=== PATIENT | female | born 2000 | race Caucasian/White ===

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

== ENCOUNTER 2020-11-23 16:41 | Emergency (ER) | payer MEDICAID ==
[~2020-11-23] VITALS: Ht 162.6 cm; Wt 73.7 kg
[~2020-11-23 16:41] MED LIST: DICY20TA29 PO
[2020-11-23] MEDS ORDERED: ONDANSETRON 2MG/ML, 2ML ONE (17:47)
[2020-11-23] MEDS ORDERED: MAALOX/HYOSCYAMINE/LIDOCAINE 45 ML BTL ONE (17:48)
--- NOTE | 2020-11-23 17:50 | NUR ---
PT RESTING ON GURNEY AT THIS TIME, PT TO BP, CONT PULSE OX. PT STATES SHE IS UNABLE TO PROVIDE URINE SAMPLE AT THIS TIME, REQUESTS TO BE GIVEN FLUIDS FIRST. PIV INITIATED PT MEDICATED PER OCT.
[2020-11-23] MEDS ORDERED: SODIUM CHLORIDE 0.9% 1,000ML IVBOLUS ONE ×2 (18:00→20:00)
[2020-11-23] MEDS ORDERED: MAALOX/HYOSCYAMINE/LIDOCAINE 45 ML BTL PO ONE (18:00)
[2020-11-23] MEDS ORDERED: ONDANSETRON 2MG/ML, 2ML IVPush ONE (18:00)
[2020-11-23] MEDS ORDERED: SODIUM CHLORIDE FLUSH 10ML SYR IVF ONE (18:00)
--- NOTE | 2020-11-23 18:12 | NUR ---
report received from oneida prather.
[2020-11-23 18:14] LABS: BASOPHILS % (AUTO) 0 % (0-1); EOSINOPHILS % (AUTO) 0 % (1-7); LYMPHOCYTES % (AUTO) 15 % (22-44); MEAN CORPUSCULAR HEMOGLOBIN 29.2 pg (27.0-34.8); MEAN CORPUSCULAR HGB CONC 34.9 g/dL (32.4-35.8); MEAN PLATELET VOLUME 6.6 fL (7.4-10.4); MONOCYTES % (AUTO) 6 % (2-9); NEUTROPHILS % (AUTO) 79 % (42-75); PLATELET COUNT 300 x10^3/uL (130-400); RED BLOOD COUNT 5.09 x10^6/uL (3.82-5.3); RED CELL DISTRIBUTION WIDTH 13.3 % (9.6-15.2)
[2020-11-23 18:15] LABS: MD NO
[2020-11-23 18:21] LABS: ALANINE AMINOTRANSFERASE 19 U/L (12-78); ALBUMIN 3.8 g/dL (3.4-5.0); ANION GAP 12 mmol/L (5-15); CALCIUM 9.8 mg/dL (8.5-10.1); CHLORIDE 103 mmol/L (98-107)
[2020-11-23 18:23] LABS: ALKALINE PHOSPHATASE 75 U/L (45-117); BILIRUBIN,TOTAL 0.7 mg/dL (0.2-1.0); TOTAL PROTEIN 7.8 g/dL (6.4-8.2)
--- NOTE | 2020-11-23 18:42 | NUR ---
report given to willie prather.
--- NOTE | 2020-11-23 18:50 | NUR ---
Report received from NELL Contreras. This RN to assume care.
[2020-11-23 19:24] VITALS: BP 99/71
--- NOTE | 2020-11-23 19:30 | NUR ---
Patient feeling "okay." Urine collected and sent to lab.
[2020-11-23 19:41] LABS: MICROSCOPIC INDICATED
--- NOTE | 2020-11-23 20:00 | NUR ---
Additional bolus initiated. Patient tolerating fluids well but states it mckenna. Apple juice provided.
--- NOTE | 2020-11-23 20:37 | NUR ---
Fluids still infusing. No complaints at this time.
--- NOTE | 2020-11-23 21:50 | NUR ---
Fluids completed. Discharge instructions given. All questions and concerns addressed. Patient ambulatory with a steady gait. Belongings with patient.
== END 2020-11-23 22:01 | disposition home or self-care (01) ==
LOC: ED 18:18
DX: O21.1 Hyperemesis gravidarum with metabolic disturbance (principal); O99.611 Diseases of the digestive system complicating pregnancy, first trimester; K21.9 Gastro-esophageal reflux disease without esophagitis; R00.0 Tachycardia, unspecified; Z3A.13 13 weeks gestation of pregnancy
CPT/HCPCS: 36415; 80053; 81001; 83690; 85025; 87086; 93005; 96361; 96374; 99284; J2405; J7030

== ENCOUNTER 2021-01-31 17:24 | Emergency (ER) | payer MEDICAID ==
[~2021-01-31] VITALS: Ht 162.6 cm; Wt 86.0 kg
[2021-01-31] MEDS ORDERED: MORPHINE SULFATE 4 MG/ML, 1ML IVPush PRN (18:00)
[2021-01-31] MEDS ORDERED: ONDANSETRON 2MG/ML, 2ML IVPush ONE (18:00)
[2021-01-31] MEDS ORDERED: SODIUM CHLORIDE FLUSH 10ML SYR IVF ONE (18:00)
[2021-01-31] MEDS ORDERED: MORPHINE SULFATE 4 MG/ML, 1ML ONE (18:03)
[2021-01-31] MEDS ORDERED: ONDANSETRON 2MG/ML, 2ML ONE (18:03)
--- NOTE | 2021-01-31 18:10 | NUR ---
ON ARRIVAL TO ROOM, PT AMBULATORY TO BR TO PROVIDE URINE SPECIMEN. PT UNABLE TO GO AT THAT TIME BUT AWARE OF NEED FOR UA. IV PLACED, LABS DRAWN WITH START. MEDS GIVEN PER ERP ORDER FOR 5/10 L FLANK PAIN. WARM BLANKET PROVIDED, PT TO US.
[2021-01-31 18:20] LABS: BASOPHILS % (AUTO) 0 % (0-1); EOSINOPHILS % (AUTO) 1 % (1-7); LYMPHOCYTES % (AUTO) 16 % (22-44); MEAN CORPUSCULAR HEMOGLOBIN 30.4 pg (27.0-34.8); MEAN CORPUSCULAR HGB CONC 34.4 g/dL (32.4-35.8); MEAN PLATELET VOLUME 6.4 fL (7.4-10.4); MONOCYTES % (AUTO) 7 % (2-9); NEUTROPHILS % (AUTO) 77 % (42-75); PLATELET COUNT 280 x10^3/uL (130-400); RED CELL DISTRIBUTION WIDTH 13.3 % (9.6-15.2)
[2021-01-31 18:30] LABS: ALANINE AMINOTRANSFERASE 18 U/L (12-78); ALBUMIN 2.9 g/dL (3.4-5.0); ANION GAP 10 mmol/L (5-15); CHLORIDE 106 mmol/L (98-107)
[2021-01-31 18:33] LABS: ALKALINE PHOSPHATASE 71 U/L (45-117); BILIRUBIN,TOTAL 0.3 mg/dL (0.2-1.0); TOTAL PROTEIN 6.9 g/dL (6.4-8.2)
[2021-01-31] MEDS ORDERED: PREN1TAB60 PO (18:59)
--- NOTE | 2021-01-31 18:59 | NUR ---
PT BACK FROM US. REPORT TO TARSHA CAMEJO, TRANSFER OF CARE AT THIS TIME.
[2021-01-31] MEDS ORDERED: SODIUM CHLORIDE 0.9%, 500ML IVBOLUS ONE (19:00)
--- NOTE | 2021-01-31 19:00 | NUR ---
PT AMBULATED WITH STEADY GAIT TO BATHROOM TO OBTAIN UA.
[2021-01-31 19:20] LABS: MICROSCOPIC AUTO
[2021-01-31] MEDS ORDERED: CEFTRIAXONE 1,000 MG in DEXTROSE 5% 50 ML IVPB ONE (19:30)
--- NOTE | 2021-01-31 19:38 | NUR ---
Patient is resting comfortably in bed. Bed in lowest, rails engaged, call light on lap. Vital Signs within normal limits. WCTM.
[2021-01-31 20:51] VITALS: BP 107/65
== END 2021-01-31 21:20 | disposition home or self-care (01) ==
LOC: ED 18:32
DX: O23.02 Infections of kidney in pregnancy, second trimester (principal); N10 Acute pyelonephritis; J45.909 Unspecified asthma, uncomplicated; K21.9 Gastro-esophageal reflux disease without esophagitis; Z90.49 Acquired absence of other specified parts of digestive tract; Z88.1 Allergy status to other antibiotic agents; Z3A.23 23 weeks gestation of pregnancy
CPT/HCPCS: 36415; 76770; 76815; 80053; 81001; 83690; 85025; 87086; 96361; 96365; 96375; 99285; J0696; J2270; J2405; J7040

== ENCOUNTER 2021-02-01 17:19 | Inpatient (IN) | payer MEDICAID ==
[~2021-02-01] VITALS: Ht 162.6 cm; Wt 90.1 kg
[~2021-02-01 17:19] MED LIST changes: +PREN1TAB60 PO
[2021-02-01] MEDS ORDERED: ONDANSETRON 2MG/ML, 2ML ONE (17:46)
[2021-02-01] MEDS ORDERED: MORPHINE SULFATE 4 MG/ML, 1ML ONE ×2 (17:46→18:36)
[2021-02-01] MEDS ORDERED: MORPHINE SULFATE 4 MG/ML, 1ML IVPush PRN (18:00)
[2021-02-01] MEDS ORDERED: ONDANSETRON 2MG/ML, 2ML IVPush ONE (18:00)
[2021-02-01] MEDS ORDERED: SODIUM CHLORIDE 0.9% 1,000ML IVBOLUS ONE ×2 (18:00→19:00)
[2021-02-01] MEDS ORDERED: SODIUM CHLORIDE FLUSH 10ML SYR IVF ONE ×2 (18:00→19:00)
--- NOTE | 2021-02-01 18:12 | NUR ---
pt states she just felt her baby kick. pt was concerned since she hadn't felt him all day.
[2021-02-01 18:28] LABS: BASOPHILS % (AUTO) 0 % (0-1); EOSINOPHILS % (AUTO) 0 % (1-7); LYMPHOCYTES % (AUTO) 10 % (22-44); MEAN CORPUSCULAR HGB CONC 33.7 g/dL (32.4-35.8); MEAN PLATELET VOLUME 6.6 fL (7.4-10.4); MONOCYTES % (AUTO) 5 % (2-9); NEUTROPHILS % (AUTO) 84 % (42-75); PLATELET COUNT 257 x10^3/uL (130-400); RED BLOOD COUNT 3.97 x10^6/uL (3.82-5.3); RED CELL DISTRIBUTION WIDTH 13.3 % (9.6-15.2)
[2021-02-01 18:30] LABS: ALANINE AMINOTRANSFERASE 15 U/L (12-78); ALBUMIN 2.9 g/dL (3.4-5.0); ANION GAP 10 mmol/L (5-15); CALCIUM 8.8 mg/dL (8.5-10.1); CHLORIDE 108 mmol/L (98-107); CREATININE 0.73 mg/dL (0.55-1.02)
[2021-02-01 18:32] LABS: ALKALINE PHOSPHATASE 73 U/L (45-117); BILIRUBIN,TOTAL 0.3 mg/dL (0.2-1.0); TOTAL PROTEIN 6.8 g/dL (6.4-8.2)
[2021-02-01 18:53] LABS: MICROSCOPIC AUTO
[2021-02-01] MEDS ORDERED: CEFTRIAXONE 1,000 MG in DEXTROSE 5% 50 ML IVPB ONE (19:00)
--- NOTE | 2021-02-01 20:02 | NUR ---
HOSPITALIST AT BEDSIDE FOR EVAL.
[2021-02-01 20:55] VITALS: BP 104/65
[2021-02-01] MEDS ORDERED: ONDANSETRON 2MG/ML, 2ML IVPush PRN (21:30)
[2021-02-01] MEDS ORDERED: BISACODYL 10 MG SUPP PR PRN (21:30)
[2021-02-01] MEDS ORDERED: morphine SULFATE 10 MG/ML, 1ML IVPush PRN (21:30)
[2021-02-01] MEDS: SODIUM CHLORIDE 0.9% 1,000 ML IV SCH (22:03)
[2021-02-02] MEDS ORDERED: CEFD300C37 PO (00:25)
[2021-02-02 00:39] VITALS: BP 103/64
[2021-02-02] MEDS: SODIUM CHLORIDE 0.9% 1,000 ML IV SCH (04:37)
[2021-02-02] MEDS: ACETAMINOPHEN 325 MG TABLET PO PRN ×2 (04:37→16:08)
[2021-02-02 04:43] LABS: BASOPHILS % (AUTO) 0 % (0-1); EOSINOPHILS % (AUTO) 2 % (1-7); LYMPHOCYTES % (AUTO) 30 % (22-44); MEAN CORPUSCULAR HEMOGLOBIN 30.4 pg (27.0-34.8); MEAN CORPUSCULAR HGB CONC 33.5 g/dL (32.4-35.8); MEAN PLATELET VOLUME 6.4 fL (7.4-10.4); MONOCYTES % (AUTO) 7 % (2-9); NEUTROPHILS % (AUTO) 61 % (42-75); PLATELET COUNT 262 x10^3/uL (130-400); RED BLOOD COUNT 3.74 x10^6/uL (3.82-5.3); RED CELL DISTRIBUTION WIDTH 13.6 % (9.6-15.2)
[2021-02-02 04:52] LABS: ANION GAP 7 mmol/L (5-15); CALCIUM 8.6 mg/dL (8.5-10.1); CHLORIDE 111 mmol/L (98-107)
[2021-02-02 07:01] VITALS: BP 98/62
[2021-02-02] MEDS: CEFTRIAXONE 1,000 MG in DEXTROSE 5% 50 ML IVPB SCH ×2 (10:18→22:26)
[2021-02-02 13:19] VITALS: BP 116/71
[2021-02-02 19:31] VITALS: BP 119/76
[2021-02-03 00:36] VITALS: BP 117/73
[2021-02-03 06:37] VITALS: BP 106/65
[2021-02-03] MEDS: CEFTRIAXONE 1,000 MG in DEXTROSE 5% 50 ML IVPB SCH (08:45)
[2021-02-03] MEDS ORDERED: CEFD300C37 PO (12:05)
[2021-02-03 13:15] VITALS: BP 106/69
== END 2021-02-03 14:55 | disposition home or self-care (01) | DRG 832 ==
LOC: ED 20:00 → EDIP 20:41 → 3N 20:44 → DCLOUNGE 02-03 14:47
PROVIDERS: ADMIT Internal Medicine; ATTEND Family Medicine
DX: O23.02 Infections of kidney in pregnancy, second trimester (principal); O99.322 Drug use complicating pregnancy, second trimester; O99.282 Endocrine, nutritional and metabolic diseases complicating pregnancy, second trimester; E86.0 Dehydration; F12.90 Cannabis use, unspecified, uncomplicated; J45.909 Unspecified asthma, uncomplicated; O99.512 Diseases of the respiratory system complicating pregnancy, second trimester; K21.9 Gastro-esophageal reflux disease without esophagitis; O99.612 Diseases of the digestive system complicating pregnancy, second trimester; Z3A.23 23 weeks gestation of pregnancy
CPT/HCPCS: 36415; 76770; 76815; 80048; 80053; 81001; 83605; 83690; 85025; 87040; 87086; 96361; 96365; 96374; 96375; 99285; G0378; J0696; J2405; J2270; J7030; J7040